=== PATIENT | male | born 1930 | race Caucasian/White ===

== ENCOUNTER 2017-03-28 19:29 | Inpatient (IN) | payer MEDICAID, MEDICARE, OTHER ==
[~2017-03-28] VITALS: Ht 180.3 cm; Wt 87.1 kg
[2017-03-28] MEDS ORDERED: SODIUM CHLORIDE FLUSH 10ML SYR IVF ONE (20:00)
[2017-03-28 20:06] LABS: ASPARTATE AMINO TRANSFERASE 19 U/L (15-37); BLOOD UREA NITROGEN 27 mg/dL (7-18)
[2017-03-28] MEDS ORDERED: NITROGLYCERIN SINGLE TAB 0.4 MG SL ONE (20:06)
[2017-03-28] MEDS: NITROGLYCERIN SINGLE TAB 0.4 MG SL PRN ×2 (20:09→20:16)
[2017-03-28] MEDS ORDERED: SODIUM CHLORIDE FLUSH 10ML SYR IVF PRN (20:30)
[2017-03-28] MEDS ORDERED: MORPHINE SULFATE 4 MG/ML, 1ML ONE (20:50)
[2017-03-28] MEDS ORDERED: DIGO125T PO (20:50)
[2017-03-28] MEDS ORDERED: LOSA25TA5 PO (20:50)
[2017-03-28] MEDS ORDERED: NS + 20MEQ KCL 1,000 ML IV SCH (20:53)
[2017-03-28] MEDS: morphine SULFATE 10 MG/ML, 1ML IVPush PRN (20:58)
[2017-03-28] MEDS ORDERED: POLYETHYLENE GLYCOL 17 GM PACKET PO PRN (21:00)
[2017-03-28] MEDS ORDERED: ONDANSETRON 2MG/ML, 2ML IVPush PRN (21:00)
[2017-03-28] MEDS ORDERED: ENOXAPARIN 40 MG/0.4 ML SQ SCH (21:00)
[2017-03-28] MEDS ORDERED: DOCUSATE 100 MG CAPSULE PO PRN (21:00)
[2017-03-28] MEDS ORDERED: ACETAMINOPHEN 325 MG TABLET PO PRN (21:00)
[2017-03-28] MEDS ORDERED: HYDROcodone/APAP 5/325 TABLET PO PRN (21:00)
[2017-03-28 21:47] VITALS: BP 115/57
[2017-03-28] MEDS ORDERED: KETOROLAC 30 MG/1 ML IVPush PRN (23:30)
[2017-03-29] VITALS (8 sets, daily range): BP systolic 117–166; BP diastolic 67–84
[2017-03-29 00:08] LABS: IS PT STATUS REG ER OR PRE ER? NO
[2017-03-29] MEDS: morphine SULFATE 10 MG/ML, 1ML IVPush PRN ×5 (01:15→18:55)
[2017-03-29] MEDS ORDERED: HEPARIN 25,000 UNITS/500ML PMX 500 ML IV PRN (01:30)
[2017-03-29] MEDS ORDERED: HEPARIN 5,000 UNITS/ML, 1ML IV PRN (01:30)
[2017-03-29 05:59] LABS: IS PT STATUS REG ER OR PRE ER? NO
[2017-03-29] MEDS: ASPIRIN 325 MG TABLET EC PO SCH (06:11)
[2017-03-29] MEDS: SENNA/DOCUSATE TABLET PO SCH (09:23)
[2017-03-29 11:18] LABS: IS PT STATUS REG ER OR PRE ER? NO
[2017-03-29] MEDS ORDERED: HEPARIN 1,000 UNITS/ML, 10ML ONE (14:01)
[2017-03-29] MEDS ORDERED: TICAGRELOR 90 MG TABLET ONE (14:01)
[2017-03-29] MEDS ORDERED: BIVALIRUDIN 250 MG ONE (14:01)
[2017-03-29] MEDS ORDERED: VERAPAMIL 2.5 MG/ML, 2ML ONE (14:01)
[2017-03-29] MEDS ORDERED: MIDAZOLAM 1 MG/ML, 5ML ONE (14:01)
[2017-03-29] MEDS ORDERED: FENTANYL PF 100 MCG/2ML ONE (14:01)
[2017-03-29] MEDS ORDERED: LIDOCAINE 2%, 20ML ONE (14:01)
[2017-03-29] MEDS: SODIUM CHLORIDE 0.9% 1,000 ML IV SCH ×2 (14:54→23:08)
[2017-03-29] MEDS: METOPROLOL TARTRATE 25 MG TABLET PO SCH (18:51)
[2017-03-30 01:17] VITALS: BP 128/72
[2017-03-30] MEDS: morphine SULFATE 10 MG/ML, 1ML IVPush PRN (01:24)
[2017-03-30] MEDS: METOPROLOL TARTRATE 25 MG TABLET PO SCH ×2 (06:05→18:48)
[2017-03-30] MEDS: ASPIRIN 325 MG TABLET EC PO SCH (06:05)
[2017-03-30] MEDS: SODIUM CHLORIDE 0.9% 1,000 ML IV SCH (06:10)
[2017-03-30 07:27] VITALS: BP 125/69
[2017-03-30] MEDS ORDERED: ISOSORBIDE MONONITRATE ER 30 MG TABLET PO SCH (09:00)
[2017-03-30 10:20] VITALS: BP 130/68
[2017-03-30] MEDS: PANTOPRAZOLE 40 MG IV IVPush SCH (10:27)
[2017-03-30] MEDS: DIGOXIN 0.125 MG TABLET PO SCH (10:29)
[2017-03-30] MEDS: SENNA/DOCUSATE TABLET PO SCH (10:29)
[2017-03-30] MEDS: ISOSORBIDE MONONITRATE ER 60 MG TABLET PO SCH (10:29)
[2017-03-30] MEDS: LOSARTAN 25MG TABLET PO SCH (10:29)
[2017-03-30] MEDS: CLOPIDOGREL 75 MG TABLET PO SCH (10:29)
[2017-03-30 13:55] VITALS: BP 105/60
[2017-03-30 18:47] VITALS: BP 102/66
[2017-03-30] MEDS ORDERED: SIMVASTATIN 20 MG TABLET PO SCH (21:00)
[2017-03-30 21:21] VITALS: BP 93/68
[2017-03-31 01:58] VITALS: BP 103/58
[2017-03-31] MEDS: METOPROLOL TARTRATE 25 MG TABLET PO SCH ×2 (06:13→16:26)
[2017-03-31] MEDS: ASPIRIN 325 MG TABLET EC PO SCH (06:13)
[2017-03-31 06:14] VITALS: BP 115/62
[2017-03-31] MEDS ORDERED: SIMV20TA3 PO (07:57)
[2017-03-31] MEDS ORDERED: ASPI-650 PO (07:57)
[2017-03-31] MEDS ORDERED: CLOP75TA PO (07:57)
[2017-03-31] MEDS ORDERED: METO25TA35 PO (07:57)
[2017-03-31] MEDS ORDERED: ISOS60TA36 PO (07:57)
[2017-03-31] MEDS: PANTOPRAZOLE 40 MG IV IVPush SCH (08:22)
[2017-03-31] MEDS: SENNA/DOCUSATE TABLET PO SCH (08:23)
[2017-03-31] MEDS: LOSARTAN 25MG TABLET PO SCH (08:28)
[2017-03-31] MEDS: ISOSORBIDE MONONITRATE ER 60 MG TABLET PO SCH (08:28)
[2017-03-31] MEDS: DIGOXIN 0.125 MG TABLET PO SCH (08:29)
[2017-03-31] MEDS: CLOPIDOGREL 75 MG TABLET PO SCH (08:29)
[2017-03-31 14:17] VITALS: BP 100/58
== END 2017-03-31 19:09 | DRG 281 ==
LOC: SUATTDRO 20:41 → ED 21:02 → EDIP 21:25 → 5SO 21:59
PROVIDERS: ADMIT Family Medicine; ATTEND Family Medicine
PROC: 4A023N7 Measurement of Cardiac Sampling and Pressure, Left Heart, Percutaneous Approach (ICD-10-PCS; principal; 2017-03-29)
PROC: B2111ZZ Fluoroscopy of Multiple Coronary Arteries using Low Osmolar Contrast (ICD-10-PCS; 2017-03-29)
PROC: B2151ZZ Fluoroscopy of Left Heart using Low Osmolar Contrast (ICD-10-PCS; 2017-03-29)
PROC: B2181ZZ Fluoroscopy of Left Internal Mammary Bypass Graft using Low Osmolar Contrast (ICD-10-PCS; 2017-03-29)
PROC: B2131ZZ Fluoroscopy of Multiple Coronary Artery Bypass Grafts using Low Osmolar Contrast (ICD-10-PCS; 2017-03-29)
DX: I21.4 Non-ST elevation (NSTEMI) myocardial infarction (principal); T82.857A Stenosis of other cardiac prosthetic devices, implants and grafts, initial encounter; I25.110 Atherosclerotic heart disease of native coronary artery with unstable angina pectoris; I25.2 Old myocardial infarction; Z87.891 Personal history of nicotine dependence; Z95.0 Presence of cardiac pacemaker; E66.9 Obesity, unspecified; Z68.26 Body mass index [BMI] 26.0-26.9, adult; I11.9 Hypertensive heart disease without heart failure
CPT/HCPCS: 36415; 71010; 80053; 80061; 83880; 84484; 85025; 85520; 85610; 85730; 93005; 93306; 93459; C1760; C1769; C1894; J0583; J1644; J1650; J1885; J2250; J3010; J3480; J3490; C9113; J2270; J7030; Q9967